=== PATIENT | male | born 1950 | race American Indian/Alaskan Native ===

== ENCOUNTER 2016-05-02 16:36 | Outpatient (CLI) | payer MEDICARE ==
--- NOTE | 2016-05-03 09:31 | XRay Report ---
BILATERAL KNEES, THREE VIEWS HISTORY: Bilateral knee pain. FINDINGS: There is normal bone mineralization. Perhaps minimal tibial spine spurring is identified in both knees. There is no evidence for fracture, bone lesion or large joint effusion. 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 IMPRESSION: Minimal osteoarthritic changes. Bipartite right patella. No acute process.
== END 2016-05-02 16:37 | disposition home or self-care (01) ==
LOC: XRAY 16:36
PROVIDERS: ATTEND Physical Medicine & Rehabilitation
DX: Q74.1 Congenital malformation of knee (principal); M25.561 Pain in right knee

== ENCOUNTER 2017-08-22 09:20 | Outpatient (CLI) | payer MEDICARE ==
--- NOTE | 2017-08-22 12:48 | Fluoroscopy Report ---
BARIUM ENEMA History: Stomach evaluation. Findings: Gastrografin enema was performed through the rectum and the left lower quadrant ostomy. The rectal pouch is intact and unremarkable measuring approximately 15-20 cm in length. Retrograde administration of Gastrografin through the left lower quadrant ostomy demonstrates mild diverticulosis of the distal transverse and descending colon. There is no evidence for mass, stricture or abnormal dilatation. The proximal colon could not be opacified. Impression: The rectal pouch is intact. Mild diverticulosis distal colon.
== END 2017-08-22 09:21 | disposition home or self-care (01) ==
LOC: FLUORO 09:20
PROVIDERS: ATTEND Surgery
DX: K57.30 Diverticulosis of large intestine without perforation or abscess without bleeding (principal)
CPT/HCPCS: 74270; Q9963

== ENCOUNTER 2018-01-11 18:49 | Inpatient (IN) | payer MEDICARE ==
[2018-01-11] MEDS ORDERED: NACL 0.9% 500 ML 500 ML IV ONE (19:02)
[2018-01-11] MEDS ORDERED: SUBLIMAZE IV ONE (19:35)
[2018-01-11] MEDS ORDERED: TYLENOL PO ONE (19:35)
[2018-01-11] MEDS ORDERED: ZOFRAN IV ONE (19:35)
[2018-01-11] MEDS ORDERED: NACL 0.9% 1000 ML IV ONE (19:36)
[2018-01-11 19:37] LABS: Basophils # (Auto) 0.1 K/mm3 (0.0-0.1); Basophils % (Auto) 0.7 % (0.0-1.8); Eosinophils # (Auto) 0.2 K/mm3 (0.0-0.4); Eosinophils % (Auto) 1.1 % (0.0-4.3); Hematocrit 36.4 % (35.5-45.6); Hemoglobin 12.2 gm/dl (11.8-15.2); Lymphocytes % (Auto) 10.9 % (13.4-35.0); Mean Corpuscular HGB Conc 34 % (32-34); Mean Corpuscular Hemoglobin 31 pg (28-32); Mean Corpuscular Volume 92 fl (84-94); Monocytes # (Auto) 1.3 K/mm3 (0.0-0.8); Monocytes % (Auto) 7.3 % (0.0-7.3); Red Blood Count 3.97 M/mm3 (3.65-5.03); Red Cell Distribution Width 13.4 % (13.2-15.2)
--- NOTE | 2018-01-11 19:39 | Emergency Department Report ---
HPI - General Chief Complaint: Fever Time Seen by Provider: 01/11/18 19:15 - HPI HPI: Room 22 The patient is 67-year-old male presented with a chief complaint of fever and abdominal pain. The patient is status post attempted closure of colostomy 12/[address] Guillen. The patient states today he noticed subjective fever as well as "pus" coming out of the abdominal surgical site. Family states the patient hasn't had output from his colostomy approximately 2 days. The patient has had shaking chills and gives his pain is score of 90/10" Location: Abdomen Duration: [See above] Quality: Pain Severity: "90/10" Modifying factors: [see above] Context: [see above] Mode of transportation: [not driving] ED Past Medical Hx - Past Medical History Hx Hypertension: Yes (1 1/2 YEARS) Hx Diabetes: Yes (2 MOS) Hx Arthritis: Yes Hx COPD: Yes (States recently failed PFT's at PCP; awaiting notes/results) Hx HIV: No Additional medical history: diverticulosis, indwelling leiva - Surgical History Additional Surgical History: hernia repair,colostomy 11/2016- 12/30/2017 attempted reversal of colostomy-unsuccessful - Family History Family history: no significant - Social History Smoking Status: Former Smoker (none 1 year) Substance Use Type: None - Medications Home Medications: Home Medications Medication Instructions Recorded Confirmed Last Taken Type Meloxicam 7.5 mg PO QDAY 01/13/15 12/30/17 12/28/17 09:00 History Multivit-Minerals/FA/Lycopene 1 each PO QDAY 01/13/15 12/30/17 12/27/17 09:00 History [Men's Daily Formula Tablet] Tizanidine HCl 4 mg PO TID 01/13/15 12/30/17 12/29/17 09:00 History Docusate Sodium [Colace CAP] 100 mg PO BID PRN #20 capsule 01/01/17 12/30/1702/05 09:00 Rx HYDROcodone/APAP 10-325 10 mg PO QID PRN #20 01/01/17 12/30/17 12/30/17 05:30 Rx Lisinopril/Hydrochlorothiazide 1 tab PO QDAY #30 tablet 01/01/17 12/30/17 05:30 Rx [Zestoretic 20-12.5 mg] Pantoprazole [Protonix TAB] 40 mg PO QDAY #30 tablet 01/01/17 12/30/17 12/30/17 05:30 Rx Albuterol Sulfate [Ventolin Hfa] 2 puff INHALATION PRN PRN 12/29/17 12/30/1702/05 21:00 History Dapagliflozin Propanediol [Farxiga] 10 mg PO DAILY 12/29/17 12/30/17 12/29/17 09 :00 History Insulin Detemir [Levemir Flextouch] 30 units SQ QHS 12/29/17 12/30/17 12/29/17 21:00 History Pregabalin [Lyrica] 75 mg PO DAILY 12/29/17 12/30/17 12/30/17 05:30 History Tamsulosin [Flomax] 0.4 mg PO DAILY 12/29/17 12/30/17 12/29/17 09:00 History Umeclidinium Brm/Vilanterol Tr 1 each IH DAILY 12/29/17 12/30/17 12/29/17 09:00 History [Anoro Ellipta 62.5-25 Mcg INH] ED Review of Systems ROS: Stated complaint: FEVER@103/PASS IN INCISION Other details as noted in HPI Constitutional: fever Eyes: denies: eye pain ENT: denies: throat pain Respiratory: no symptoms reported Cardiovascular: denies: chest pain Endocrine: no symptoms reported Gastrointestinal: abdominal pain Genitourinary: denies: dysuria Musculoskeletal: denies: back pain Neurological: denies: headache Physical Exam - Physical Exam Vital Signs: Vital Signs 01/11/18 18:57 Temperature 102.8 F H Pulse Rate 112 H Respiratory 14 Rate Blood Pressure 105/75 O2 Sat by Pulse 94 Oximetry Physical Exam: GENERAL: The patient is well-developed well-nourished male lying on stretcher not appearing to be in acute distress. [] HEENT: Normocephalic. Atraumatic. Extraocular motions are intact. Patient has moist mucous membranes. NECK: Supple. Trachea midline CHEST/LUNGS: Clear to auscultation. There is no respiratory distress noted. HEART/CARDIOVASCULAR: Regular. There is tachycardia. There is no gallop rub or murmur. ABDOMEN: Abdomen is soft, with diffuse tenderness to palpation. Patient has normal bowel sounds. There is no abdominal distention. SKIN: There is evidence of some yellow discharge from abdominal surgical site. There is some regions of erythema around the suture points. There is no diaphoresis. NEURO: The patient is awake, alert, and oriented. The patient is cooperative. The patient has normal speech MUSCULOSKELETAL: There is no evidence of acute injury. ED Course Vital Signs 01/11/18 18:57 Temperature 102.8 F H Pulse Rate 112 H Respiratory 14 Rate Blood Pressure 105/75 O2 Sat by Pulse 94 Oximetry - Consultations Consultation #1: 01/11/18 20:00 Dr. Guillen [email or web address] 01/11/18 20:[address] Guillen-will recontact when CT abdomen and pelvis has resulted ED Medical Decision Making - Lab Data Result diagrams: 01/11/18 19:12 01/11/18 19:12 Laboratory Tests 01/11/18 01/11/18 01/11/18 19:12 19:12 19:12 WBC 17.9 H RBC 3.97 Hgb 12.2 Hct 36.4 MCV 92 MCH 31 MCHC 34 RDW 13.4 Plt Count 305 Lymph % (Auto) 10.9 L [place] % (Auto) 7.3 Eos % (Auto) 1.1 Baso % (Auto) 0.7 Lymph # 2.0 [place] # 1.3 H Eos # 0.2 Baso # 0.1 Seg Neutrophils % 80.0 H Seg Neutrophils # 14.4 H PT 14.5 INR 1.08 VBG pH Sodium 135 L Potassium 3.6 Chloride 93.9 L Carbon Dioxide 27 Anion Gap 18 BUN 13 Creatinine 0.9 Estimated GFR > 60 BUN/Creatinine Ratio 14 Glucose 154 H Lactic Acid Calcium 9.3 Total Bilirubin 1.00 AST 20 ALT 16 Alkaline Phosphatase 47 Total Protein 7.3 Albumin 3.9 Albumin/Globulin Ratio 1.1 01/11/18 01/11/18 19:12 19:12 WBC RBC Hgb Hct MCV MCH MCHC RDW Plt Count Lymph % (Auto) [place] % (Auto) Eos % (Auto) Baso % (Auto) Lymph # [place] # Eos # Baso # Seg Neutrophils % Seg Neutrophils # PT INR VBG pH 7.516 H Sodium Potassium Chloride Carbon Dioxide Anion Gap BUN Creatinine Estimated GFR BUN/Creatinine Ratio Glucose Lactic Acid 1.70 Calcium Total Bilirubin AST ALT Alkaline Phosphatase Total Protein Albumin Albumin/Globulin Ratio - Radiology Data Radiology results: report reviewed (CT abdomen and pelvis), image reviewed (CT abdomen and pelvis) - Differential Diagnosis postop infection Critical care attestation.: If time is entered above; I have spent that time in minutes in the direct care of this critically ill patient, excluding procedure time. ED Disposition Clinical Impression: Postoperative infection, Acute abdominal pain, Fever, Small bowel obstruction Disposition: OP ADMIT IP TO THIS HOSP Is pt being admited?: Yes Does the pt Need Aspirin: No Condition: Fair Time of Disposition: 23:33 (hospitalist paged (Dr Hoskins))
[2018-01-11 19:50] LABS: INR 1.08 (0.87-1.13)
[2018-01-11 19:51] LABS: Alanine Aminotransferase 16 units/L (7-56); Albumin 3.9 g/dL (3.9-5); BUN/Creatinine Ratio 14; Blood Urea Nitrogen 13 mg/dL (9-20); Calcium 9.3 mg/dL (8.4-10.2); Hemolysis Index 14
[2018-01-11 19:54] LABS: Platelet Count 305 K/mm3 (140-440)
[2018-01-11] MEDS ORDERED: NACL 0.9% 1000 ML 1,000 ML ONE (21:48)
[2018-01-11] MEDS ORDERED: ZOFRAN ONE (21:49)
[2018-01-11] MEDS ORDERED: TYLENOL ONE (21:51)
--- NOTE | 2018-01-11 23:13 | Cat Scan Report ---
FINAL REPORT EXAM: CT ABDOMEN PELVIS W CON HISTORY: postop fever and abdominal pain TECHNIQUE: Following IV administration of 100 cc of Omnipaque 300 axial helical imaging was performed through the abdomen and pelvis with sagittal and coronal reformatted images obtained. Delayed axial helical imaging was also performed through the abdomen and pelvis. Comparison: X-ray abdomen dated December 28, 2016 FINDINGS: There is pulmonary consolidation in both lung bases most suggestive of atelectasis. There is a small left pleural fluid collection. The heart appears to be enlarged. There are small calcifications in the liver hilum that are of unclear etiology. The spleen, pancreas and adrenal glands are unremarkable in appearance. There is an approximately 2.9 centimeter probable cyst in the right kidney. There is an approximately 6 millimeter hypodensity in the left kidney that is too small to characterize. There is no evidence of hydronephrosis. Calcifications in the renal pelvis bilaterally most likely represent vascular calcifications. The gallbladder is moderately to markedly distended but otherwise unremarkable. There are variably distended loops of bowel in the abdomen and pelvis. There is a loop of bowel that is contiguous with the anterior abdominal wall in the midline near a hernia repair site and measures approximately 2.6 centimeters in caliber with an air-fluid level. There is a transition in caliber of the small bowel more distally with the caliber of the small bowel distal to the transition measuring approximately 1.2 centimeter. More superiorly there is another loop of bowel that is mildly distended and measures approximately 2.6 centimeters in caliber with an air-fluid level with a transition in caliber with the more distal bowel measuring approximately 1.1 centimeter in caliber. There is a moderate amount of stool in the ascending and transverse colon. There are colonic diverticula without radiographic evidence of diverticulitis. There is a left anterior pelvic wall colostomy. There is a collection of fluid with marginal enhancement in the right anterior pelvis inferior to the cecum and lateral but contiguous with the terminal ileum. This is suggestive of an abscess and measures approximately 5.1 centimeters (AP) by 5.6 centimeters (lateral) by 4.8 centimeters (craniocaudal). The abdominal aorta is normal caliber. There is atherosclerotic vascular calcification with plaque formation of the aorta and iliac arteries. The urinary bladder is moderately distended and contains a balloon catheter. The prostate gland appears to be normal size. The bony structures are notable for grade 1/grade 2 anterolisthesis L5 on S1 and spondylitic change of the lower thoracic spine of the lumbar spine. There is bilateral L5 spondylolysis. IMPRESSION: 1. Evidence of previous partial colectomy with left anterior ostomy. 2. Fluid collection with marginal enhancement in the right pelvis concerning for abscess. 3. Variably distended loops of bowel with 2 areas of transition in caliber. Possible areas of partial small bowel obstruction. There is a moderate amount of stool in the colon. 4. Colonic diverticula. 5. Small left pleural fluid collection. 6. Spondylitic change lumbar spine with grade 1/grade 2 anterolisthesis and bilateral L5 spondylolysis. 7. Cardiomegaly.
[2018-01-11 23:43] LABS: Bacteria,Urine 1+ /HPF (Negative); Bilirubin,Urine NEG (Negative); Blood,Urine SM (Negative); Color,Urine Yellow (Yellow); Mucus,Urine 3+ /HPF
[2018-01-12] MEDS ORDERED: SUBLIMAZE ONE (00:15)
[2018-01-12] MEDS ORDERED: ZOFRAN IV PRN (02:15)
[2018-01-12] MEDS ORDERED: TYLENOL PO PRN (02:16)
[2018-01-12] MEDS ORDERED: D5/0.45NS 1,000 ML IV SCH (03:00)
[2018-01-12] MEDS: ZOSYN/NS 4.5GM/100ML 4.5 GM/100 ML VIAL IV SCH ×4 (03:36→21:57)
--- NOTE | 2018-01-12 06:28 | History and Physical Report ---
CHIEF COMPLAINT: Abdominal pain and fever. HISTORY OF PRESENTING ILLNESS: The patient is a 67-year-old male who had surgery about 10 days ago involving a reversal of colostomy and started having abdominal pain with some discharge at the surgical site and fever. The patient denied history of nausea and vomiting, but has history of chills with the abdominal pain getting up to as high as level of 9/10 and patient presented for evaluation. PAST MEDICAL HISTORY: Pertinent for hypertension, diabetes mellitus, arthritis, COPD, diverticulosis, indwelling Bowen catheter. PAST SURGICAL HISTORY: Pertinent for hernia repair. The patient had colostomy in November of 2016 with reversal of colostomy recently on 12/30/2017. FAMILY HISTORY: Family history is noncontributory. SOCIAL HISTORY: The patient is a former cigarette smoker, but does not smoke currently, does not drink alcohol and does not use illicit drug. MEDICATIONS: The patient's home medications include meloxicam 7.5 mg by mouth daily, multivitamin and mineral 1 by mouth daily, tizanidine 4 mg by mouth 3 times daily, docusate sodium 100 mg by mouth twice daily, hydrocodone 10 mg by mouth t.i.d., lisinopril/hydrochlorothiazide one tablet by mouth daily, pantoprazole 40 mg by mouth daily, albuterol or Ventolin 2 puffs inhalation as needed, Farxiga 10 mg by mouth daily, Levemir 30 units subQ at bedtime, pregabalin, Lyrica 75 mg by mouth daily, tamsulosin or Flomax 0.4 mg by mouth daily, Anoro Ellipta 62.5/25 mcg inhalation 1 inhalation daily. ALLERGIES: THE PATIENT IS ALLERGIC TO NEUROMUSCULAR BRUCE AND STEROIDS. REVIEW OF SYSTEMS: CONSTITUTIONAL: Fever present. Chills present. No diaphoresis. HEENT: There is no headache or sore throat. CARDIOVASCULAR SYSTEM: There is no chest pain or orthopnea. RESPIRATORY SYSTEM: There is no shortness of breath or cough. GASTROINTESTINAL SYSTEM: Abdominal pain present. No diarrhea, no constipation, no nausea, no vomiting. NEUROLOGICAL SYSTEM: There is no numbness, no dizziness, no altered mental status. MUSCULOSKELETAL SYSTEM: There is no joint pain or joint swelling. DERMATOLOGICAL SYSTEM: Discharge from the surgical site noted. Breakdown of anterior abdominal surgical wound noted, no itching. GENITOURINARY SYSTEM: There is no dysuria, hematuria, or flank pain. Rest of system review is normal. PHYSICAL EXAMINATION: GENERAL: At the time of exam, the patient was found to be alert, oriented x 3, not in acute distress. VITAL SIGNS: At the initial time of presentation showed temperature of 102.8 degrees Fahrenheit, pulse of 112, respiration 14, blood pressure 105/75, O2 sat of 94% on room air. HEENT: Showed pupils to be equal, round, reactive to light and accommodating. Extraocular muscles are intact. NECK: Neck is supple with no JVD or carotid bruits. CARDIOVASCULAR SYSTEM: Showed normal first and second heart sounds with no gallops or murmur. RESPIRATORY SYSTEM: Showed good air entry on both sides of the lungs with no abnormal breath sounds. GASTROINTESTINAL SYSTEM: Showed abdomen to be full, soft, tender with open wound in the subumbilical midline area with some discharge and some stitches still present. NEUROLOGICAL SYSTEM: Neurological system showed no focal deficit. MUSCULOSKELETAL SYSTEM: Showed no joint swelling or tenderness. DERMATOLOGICAL SYSTEM: Showed no skin rash. GENITOURINARY SYSTEM: Showing no costovertebral angle tenderness. PERTINENT LABORATORY AND IMAGING STUDIES: The patient had CBC done with elevated white count of 17,900 with CBC differential showing high segmented neutrophil count of 80% and coagulation studies were unremarkable. The patient's chemistry shows slight decrease in sodium level of 135 and decrease in chloride level of 93.9. The rest of chemistry being unremarkable. The patient's urinalysis show elevated urine WBC of 114 with moderate leukocyte esterase with negative urine nitrite and trace urine ketone with 1+ bacteria. Imaging studies; the patient has CT of the abdomen and pelvis done and this shows evidence of previous partial colectomy with left anterior ostomy. There is also finding of fluid collection with marginal enhancement in the right pelvis concerning for abscess according to the radiology. Also the radiologist reported variable distended loops of bowel with two areas of transition in caliber and also 7 possible areas of partial small bowel obstruction with moderate amount of stool in the colon. There is finding of colonic diverticula, has more left pleural fluid collection. Also the radiologist reported pulmonary consolidation in both lung bases suggestive of atelectasis. DIAGNOSES: 1. Surgical wound infection. 2. Small bowel obstruction. 3. Intraabdominal abscess. 4. Sepsis. PLAN: 1. The patient will be admitted to [facility]. 2. The patient will have surgical consult with Dr. Guillen. 3. The patient was placed on IV D5 half normal at 75 mL an hour. Will be put back on normal saline at 125 mL an hour to treat sepsis. 4. Tylenol 650 mg by mouth every 4 hours for fever and headache and also the patient will be on IV Zofran 4 mg IV every 8 hours for nausea and vomiting and will be on IV Dilaudid 0.5 mg every 3 hours as needed for pain. The patient will continue IV Zosyn 4.5 grams q. 8 hours. Further management of the patient's condition will be determined by the surgeon during consult. JOB# [id number] OCN/NTS
[2018-01-12] MEDS: NACL 0.9% 1000 ML 1,000 ML IV SCH (08:30)
[2018-01-12] MEDS: DILAUDID IV PRN ×5 (08:34→23:30)
[2018-01-12] MEDS ORDERED: COLACE PO PRN (10:38)
--- NOTE | 2018-01-12 10:41 | Event Note ---
Date: 01/12/18
--- NOTE | 2018-01-12 10:47 | Progress Note ---
Assessment and Plan Assessment and plan: --Intra-abdominal /pelvic abscess; Continue current antibiotics, nothing by mouth status, surgery consulted --Sepsis secondary to intra-abdominal abscess/UTI Continue current antibiotics, follow cultures, consider ID evaluation --Small bowel obstruction; nothing by mouth status IV fluids, supportive care, pending surgical evaluation --Leukocytosis; due to sepsis Continue about treatment --2 diabetes mellitus; Accu-Chek sliding scale coverage Patient currently nothing by mouth status, insulin as needed --DVT prophylaxis; SCDs Pending surgical evaluation Closely monitor the patient and adjust the management as needed History Interval history: Patient seen and examined medical records reviewed no new events reported by the nursing staff Admitted with abdominal pain, pelvic abscess, on empiric antibiotics Patient looks ill, vital signs reviewed Hospitalist Physical - Constitutional Vitals: Temp Pulse Resp BP Pulse Ox 98.4 F 91 H 18 147/81 96 01/12/18 09:22 01/12/18 09:22 01/12/18 09:22 01/12/18 09:22 01/12/18 09:22 General appearance: Present: no acute distress, well-nourished - EENT Eyes: Present: PERRL, EOM intact - Neck Neck: Present: supple, normal ROM - Respiratory Respiratory effort: normal Respiratory: bilateral: diminished, negative: rales, rhonchi, wheezing - Cardiovascular Rhythm: regular Heart Sounds: Present: S1 & S2 - Extremities Extremities: no ischemia, No edema - Abdominal General gastrointestinal: soft, distended, absent bowel sounds, other (surgical sutures in place) - Integumentary Integumentary: Present: clear, warm - Psychiatric Psychiatric: appropriate mood/affect, cooperative - Neurologic Neurologic: CNII-XII intact, moves all extremities Results - Labs CBC & Chem 7: 01/11/18 19:12 01/11/18 19:12 Labs: Laboratory Last Values WBC 17.9 K/mm3 (4.5-11.0) H 01/11/18 19:12 RBC 3.97 M/mm3 (3.65-5.03) 01/11/18 19:12 Hgb 12.2 gm/dl (11.8-15.2) 01/11/18 19:12 Hct 36.4 % (35.5-45.6) 01/11/18 19:12 MCV 92 fl (84-94) 01/11/18 19:12 MCH 31 pg (28-32) 01/11/18 19:12 MCHC 34 % (32-34) 01/11/18 19:12 RDW 13.4 % (13.2-15.2) 01/11/18 19:12 Plt Count 305 K/mm3 (140-440) 01/11/18 19:12 Lymph % (Auto) 10.9 % (13.4-35.0) L 01/11/18 19:12 [place] % (Auto) 7.3 % (0.0-7.3) 01/11/18 19:12 Eos % (Auto) 1.1 % (0.0-4.3) 01/11/18 19:12 Baso % (Auto) 0.7 % (0.0-1.8) 01/11/18 19:12 Lymph # 2.0 K/mm3 (1.2-5.4) 01/11/18 19:12 [place] # 1.3 K/mm3 (0.0-0.8) H 01/11/18 19:12 Eos # 0.2 K/mm3 (0.0-0.4) 01/11/18 19:12 Baso # 0.1 K/mm3 (0.0-0.1) 01/11/18 19:12 Seg Neutrophils % 80.0 % (40.0-70.0) H 01/11/18 19:12 Seg Neutrophils # 14.4 K/mm3 (1.8-7.7) H 01/11/18 19:12 PT 14.5 Sec. (12.2-14.9) 01/11/18 19:12 INR 1.08 (0.87-1.13) 01/11/18 19:12 VBG pH 7.516 (7.320-7.420) H 01/11/18 19:12 Sodium 135 mmol/L (137-145) L 01/11/18 19:12 Potassium 3.6 mmol/L (3.6-5.0) 01/11/18 19:12 Chloride 93.9 mmol/L (98-107) L 01/11/18 19:12 Carbon Dioxide 27 mmol/L (22-30) 01/11/18 19:12 Anion Gap 18 mmol/L 01/11/18 19:12 BUN 13 mg/dL (9-20) 01/11/18 19:12 Creatinine 0.9 mg/dL (0.8-1.5) 01/11/18 19:12 Estimated GFR > 60 ml/min 01/11/18 19:12 BUN/Creatinine Ratio 14 % 01/11/18 19:12 Glucose 154 mg/dL (75-100) H 01/11/18 19:12 Lactic Acid 1.30 mmol/L (0.7-2.0) 01/11/18 23:10 Calcium 9.3 mg/dL (8.4-10.2) 01/11/18 19:12 Total Bilirubin 1.00 mg/dL (0.1-1.2) 01/11/18 19:12 AST 20 units/L (5-40) 01/11/18 19:12 ALT 16 units/L (7-56) 01/11/18 19:12 Alkaline Phosphatase 47 units/L (35-129) 01/11/18 19:12 Total Protein 7.3 g/dL (6.3-8.2) 01/11/18 19:12 Albumin 3.9 g/dL (3.9-5) 01/11/18 19:12 Albumin/Globulin Ratio 1.1 % 01/11/18 19:12 Urine Color Yellow (Yellow) 01/11/18 22:41 Urine Turbidity Cloudy (Clear) 01/11/18 22:41 Urine pH 7.0 (5.0-7.0) 01/11/18 22:41 Ur Specific [place] 1.017 (1.003-1.030) 01/11/18 22:41 Urine Protein 100 mg/dl mg/dL (Negative) 01/11/18 22:41 Urine Glucose (UA) Neg mg/dL (Negative) 01/11/18 22:41 Urine Ketones Tr mg/dL (Negative) 01/11/18 22:41 Urine Blood Sm (Negative) 01/11/18 22:41 Urine Nitrite Neg (Negative) 01/11/18 22:41 Urine Bilirubin Neg (Negative) 01/11/18 22:41 Urine Urobilinogen 4.0 mg/dL (<2.0) 01/11/18 22:41 Ur Leukocyte Esterase Mod (Negative) 01/11/18 22:41 Urine WBC (Auto) 114.0 /HPF (0.0-6.0) H 01/11/18 22:41 Urine RBC (Auto) 53.0 /HPF (0.0-6.0) 01/11/18 22:41 Urine Bacteria (Auto) 1+ /HPF (Negative) 01/11/18 22:41 Urine Mucus 3+ /HPF 01/11/18 22:41 Urine Yeast (Budding) 3+ /HPF 01/11/18 22:41
[2018-01-12] MEDS: HumaLOG SUB-Q SCH ×3 (12:06→23:29)
[2018-01-12] MEDS: ZANAFLEX PO SCH ×2 (14:45→21:56)
[2018-01-13] MEDS: DILAUDID IV PRN ×5 (03:58→22:59)
[2018-01-13] MEDS: ZOSYN/NS 4.5GM/100ML 4.5 GM/100 ML VIAL IV SCH ×3 (03:58→20:44)
[2018-01-13] MEDS: NACL 0.9% 1000 ML 1,000 ML IV SCH ×2 (03:58→16:01)
[2018-01-13 04:22] LABS: BUN/Creatinine Ratio 16; Blood Urea Nitrogen 13 mg/dL (9-20); Calcium 8.1 mg/dL (8.4-10.2); Hemolysis Index 34
[2018-01-13 04:24] LABS: Hematocrit 30.6 % (35.5-45.6); Hemoglobin 10.2 gm/dl (11.8-15.2); Mean Corpuscular HGB Conc 33 % (32-34); Mean Corpuscular Hemoglobin 30 pg (28-32); Mean Corpuscular Volume 91 fl (84-94); Platelet Count 306 K/mm3 (140-440); Red Blood Count 3.36 M/mm3 (3.65-5.03); Red Cell Distribution Width 13.5 % (13.2-15.2)
[2018-01-13 04:35] LABS: Basophils % (Auto) 0.6 % (0.0-1.8); Eosinophils % (Auto) 0.5 % (0.0-4.3); Lymphocytes # (Auto) 1.3 K/mm3 (1.2-5.4); Lymphocytes % (Auto) 10.8 % (13.4-35.0); Monocytes % (Auto) 6.5 % (0.0-7.3)
[2018-01-13 04:36] LABS: Basophils # (Auto) 0.1 K/mm3 (0.0-0.1); Eosinophils # (Auto) 0.1 K/mm3 (0.0-0.4); Monocytes # (Auto) 0.8 K/mm3 (0.0-0.8)
--- NOTE | 2018-01-13 05:45 | Consultation ---
HISTORY OF PRESENT ILLNESS: The patient is a well-known case to me who was in this hospital about 2 weeks ago for closure of colostomy, and prior to that, one year before, he had very extensive diverticular disease requiring colon resection and transverse colostomy. I saw him in the office on multiple occasions in the last year and he was doing fine. At this time, he came to close his colostomy. This was about 2 weeks ago. This could not be done because the area was inflamed. We tried to do this with Dr. Jacobo as well and it would not anastomose. Our concern was that the urinary bladder was really stuck to the rectum, so we abandoned the case and we closed the abdomen and we left the colostomy. 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 So, he was admitted for further evaluation. I already called the Interventional Radiology people to drain that area. PHYSICAL EXAMINATION: GENERAL: At this point showed a well preserved man. He looks a little bit sick to me. HEAD AND NECK: Negative. CHEST: Clear. HEART: Sound normal to me. ABDOMEN: Protuberant, moderate tenderness in the right mid lower abdomen. EXTREMITIES: Showed no evidence of edema. IMPRESSION AND PLAN: A collection in the right mid lower abdomen, status post attempt at closure of colostomy, status post severe diverticular disease in the past. At this point, we need to just continue the same with antibiotics and then we will go from there. I had a lengthy talk with the patient and his as to the need for the above and we will have a followup on him. JOB# [id number] GLENDY/DANTE
[2018-01-13] MEDS: HumaLOG SUB-Q SCH ×4 (07:45→21:56)
[2018-01-13] MEDS: ZANAFLEX PO SCH ×3 (08:00→20:45)
[2018-01-13] MEDS ORDERED: DIFLUCAN 200 MG/100 ML BAG IV ONE (09:39)
--- NOTE | 2018-01-13 09:41 | Progress Note ---
Assessment and Plan Assessment and plan: --Intra-abdominal /pelvic abscess; An evaluation and per surgery/IR Continue current antibiotics, nothing by mouth status, possible CT-guided drainage today --Sepsis secondary to intra-abdominal abscess/UTI Continue current antibiotics, follow cultures, consider ID evaluation --Small bowel obstruction; nothing by mouth status IV fluids, supportive care, pending surgical evaluation --Leukocytosis; due to sepsis, trending down --2 diabetes mellitus; Accu-Chek sliding scale coverage Patient currently nothing by mouth status, insulin as needed --DVT prophylaxis; SCDs Pending surgical evaluation Surgery consultation and recommendations noted and appreciated Closely monitor the patient and adjust the management as needed History Interval history: Patient seen and examined medical records reviewed Patient complains of some abdominal pain Alert awake oriented Vital signs noted Scheduled for CT-guided drainage of pelvic abscess today Hospitalist Physical - Constitutional Vitals: Temp Pulse Resp BP Pulse Ox 98.8 F 82 16 128/73 93 01/13/18 07:32 01/13/18 07:32 01/13/18 08:22 01/13/18 07:32 01/13/18 07:32 General appearance: Present: no acute distress, well-nourished - EENT Eyes: Present: PERRL, EOM intact - Neck Neck: Present: supple, normal ROM - Respiratory Respiratory effort: normal Respiratory: bilateral: diminished, negative: rales, rhonchi, wheezing - Cardiovascular Rhythm: regular Heart Sounds: Present: S1 & S2 - Extremities Extremities: no ischemia, No edema - Abdominal General gastrointestinal: soft, tender, distended, hypoactive bowel sounds - Integumentary Integumentary: Present: clear, warm - Psychiatric Psychiatric: appropriate mood/affect, cooperative - Neurologic Neurologic: moves all extremities Results - Labs CBC & Chem 7: 01/14/18 05:39 01/14/18 05:39 Labs: Laboratory Last Values WBC 11.8 K/mm3 (4.5-11.0) H 01/13/18 03:38 RBC 3.36 M/mm3 (3.65-5.03) L 01/13/18 03:38 Hgb 10.2 gm/dl (11.8-15.2) L 01/13/18 03:38 Hct 30.6 % (35.5-45.6) L 01/13/18 03:38 MCV 91 fl (84-94) 01/13/18 03:38 MCH 30 pg (28-32) 01/13/18 03:38 MCHC 33 % (32-34) 01/13/18 03:38 RDW 13.5 % (13.2-15.2) 01/13/18 03:38 Plt Count 306 K/mm3 (140-440) 01/13/18 03:38 Lymph % (Auto) 10.8 % (13.4-35.0) L 01/13/18 03:38 [place] % (Auto) 6.5 % (0.0-7.3) 01/13/18 03:38 Eos % (Auto) 0.5 % (0.0-4.3) 01/13/18 03:38 Baso % (Auto) 0.6 % (0.0-1.8) 01/13/18 03:38 Lymph # 1.3 K/mm3 (1.2-5.4) 01/13/18 03:38 [place] # 0.8 K/mm3 (0.0-0.8) 01/13/18 03:38 Eos # 0.1 K/mm3 (0.0-0.4) 01/13/18 03:38 Baso # 0.1 K/mm3 (0.0-0.1) 01/13/18 03:38 Seg Neutrophils % 81.6 % (40.0-70.0) H 01/13/18 03:38 Seg Neutrophils # 9.7 K/mm3 (1.8-7.7) H 01/13/18 03:38 PT 14.5 Sec. (12.2-14.9) 01/11/18 19:12 INR 1.08 (0.87-1.13) 01/11/18 19:12 VBG pH 7.516 (7.320-7.420) H 01/11/18 19:12 Sodium 132 mmol/L (137-145) L 01/13/18 03:38 Potassium 3.9 mmol/L (3.6-5.0) 01/13/18 03:38 Chloride 96.3 mmol/L (98-107) L 01/13/18 03:38 Carbon Dioxide 23 mmol/L (22-30) 01/13/18 03:38 Anion Gap 17 mmol/L 01/13/18 03:38 BUN 13 mg/dL (9-20) 01/13/18 03:38 Creatinine 0.8 mg/dL (0.8-1.5) 01/13/18 03:38 Estimated GFR > 60 ml/min 01/13/18 03:38 BUN/Creatinine Ratio 16 % 01/13/18 03:38 Glucose 104 mg/dL (75-100) H 01/13/18 03:38 POC Glucose 118 (70-105) H 01/13/18 07:34 Lactic Acid 1.30 mmol/L (0.7-2.0) 01/11/18 23:10 Calcium 8.1 mg/dL (8.4-10.2) L 01/13/18 03:38 Total Bilirubin 1.00 mg/dL (0.1-1.2) 01/11/18 19:12 AST 20 units/L (5-40) 01/11/18 19:12 ALT 16 units/L (7-56) 01/11/18 19:12 Alkaline Phosphatase 47 units/L (35-129) 01/11/18 19:12 Total Protein 7.3 g/dL (6.3-8.2) 01/11/18 19:12 Albumin 3.9 g/dL (3.9-5) 01/11/18 19:12 Albumin/Globulin Ratio 1.1 % 01/11/18 19:12 Urine Color Yellow (Yellow) 01/11/18 22:41 Urine Turbidity Cloudy (Clear) 01/11/18 22:41 Urine pH 7.0 (5.0-7.0) 01/11/18 22:41 Ur Specific [place] 1.017 (1.003-1.030) 01/11/18 22:41 Urine Protein 100 mg/dl mg/dL (Negative) 01/11/18 22:41 Urine Glucose (UA) Neg mg/dL (Negative) 01/11/18 22:41 Urine Ketones Tr mg/dL (Negative) 01/11/18 22:41 Urine Blood Sm (Negative) 01/11/18 22:41 Urine Nitrite Neg (Negative) 01/11/18 22:41 Urine Bilirubin Neg (Negative) 01/11/18 22:41 Urine Urobilinogen 4.0 mg/dL (<2.0) 01/11/18 22:41 Ur Leukocyte Esterase Mod (Negative) 01/11/18 22:41 Urine WBC (Auto) 114.0 /HPF (0.0-6.0) H 01/11/18 22:41 Urine RBC (Auto) 53.0 /HPF (0.0-6.0) 01/11/18 22:41 Urine Bacteria (Auto) 1+ /HPF (Negative) 01/11/18 22:41 Urine Mucus 3+ /HPF 01/11/18 22:41 Urine Yeast (Budding) 3+ /HPF 01/11/18 22:41
[2018-01-13] MEDS ORDERED: NON-FORMULARY (Lisinopril/Hydrochlorothiazide [Zestoretic 20-12.5 Mg] 1 TAB) PO SCH (10:00)
[2018-01-13] MEDS: ZESTRIL PO SCH (10:45)
[2018-01-13] MEDS: PROTONIX PO SCH (10:45)
[2018-01-13] MEDS: LYRICA PO SCH (10:45)
[2018-01-13] MEDS: HCTZ PO SCH (10:45)
[2018-01-13] MEDS: FLOMAX PO SCH (10:45)
[2018-01-13] MEDS ORDERED: DIFLUCAN PO ONE (11:00)
[2018-01-13] MEDS ORDERED: VERSED IV ONE ×2 (13:14→13:17)
[2018-01-13] MEDS ORDERED: SUBLIMAZE ONE (13:15)
[2018-01-13] MEDS ORDERED: SUBLIMAZE IV ONE (13:17)
[2018-01-13] MEDS ORDERED: XYLOCAINE 1%/ EPI 1:100,000 INFILTRATI ONE (13:26)
--- NOTE | 2018-01-13 15:12 | Progress Note ---
Subjective Patient Reports: Positive: still having pain Narrative: for drainage today seen in radiology wbc OK will check result Objective Vital Signs - 12hr 01/13/18 01/13/18 01/13/18 03:58 04:10 04:28 Temperature Pulse Rate 91 H Pulse Rate [ Intra-Procedure ] Pulse Rate [ Post-Procedure] Pulse Rate [Pre -Procedure] Respiratory 20 20 Rate Respiratory Rate [Intra- Procedure] Respiratory Rate [Post- Procedure] Respiratory Rate [Pre- Procedure] Blood Pressure Blood Pressure [Intra- Procedure] Blood Pressure [Post-Procedure ] Blood Pressure [Pre-Procedure] O2 Sat by Pulse 96 Oximetry O2 Sat by Pulse Oximetry [ Intra-Procedure ] O2 Sat by Pulse Oximetry [Post -Procedure] O2 Sat by Pulse Oximetry [Pre- Procedure] 01/13/18 01/13/18 01/13/18 07:32 08:22 12:01 Temperature 98.8 F Pulse Rate 82 Pulse Rate [ Intra-Procedure ] Pulse Rate [ Post-Procedure] Pulse Rate [Pre -Procedure] Respiratory 18 16 16 Rate Respiratory Rate [Intra- Procedure] Respiratory Rate [Post- Procedure] Respiratory Rate [Pre- Procedure] Blood Pressure 128/73 Blood Pressure [Intra- Procedure] Blood Pressure [Post-Procedure ] Blood Pressure [Pre-Procedure] O2 Sat by Pulse 93 Oximetry O2 Sat by Pulse Oximetry [ Intra-Procedure ] O2 Sat by Pulse Oximetry [Post -Procedure] O2 Sat by Pulse Oximetry [Pre- Procedure] 01/13/18 01/13/18 01/13/18 13:25 13:30 13:35 Temperature Pulse Rate Pulse Rate [ 97 H 103 H Intra-Procedure ] Pulse Rate [ Post-Procedure] Pulse Rate [Pre 98 H -Procedure] Respiratory Rate Respiratory 22 18 Rate [Intra- Procedure] Respiratory Rate [Post- Procedure] Respiratory 18 Rate [Pre- Procedure] Blood Pressure Blood Pressure 138/66 141/69 [Intra- Procedure] Blood Pressure [Post-Procedure ] Blood Pressure 140/70 [Pre-Procedure] O2 Sat by Pulse Oximetry O2 Sat by Pulse 95 95 Oximetry [ Intra-Procedure ] O2 Sat by Pulse Oximetry [Post -Procedure] O2 Sat by Pulse 94 Oximetry [Pre- Procedure] 01/13/18 01/13/18 01/13/18 13:40 13:42 14:00 Temperature Pulse Rate Pulse Rate [ 99 H Intra-Procedure ] Pulse Rate [ 98 H 94 H Post-Procedure] Pulse Rate [Pre -Procedure] Respiratory Rate Respiratory 19 Rate [Intra- Procedure] Respiratory 20 17 Rate [Post- Procedure] Respiratory Rate [Pre- Procedure] Blood Pressure Blood Pressure 136/61 [Intra- Procedure] Blood Pressure 132/70 122/60 [Post-Procedure ] Blood Pressure [Pre-Procedure] O2 Sat by Pulse Oximetry O2 Sat by Pulse 95 Oximetry [ Intra-Procedure ] O2 Sat by Pulse 94 94 Oximetry [Post -Procedure] O2 Sat by Pulse Oximetry [Pre- Procedure] 01/13/18 01/13/18 14:11 14:37 Temperature 99.9 F H Pulse Rate 93 H Pulse Rate [ Intra-Procedure ] Pulse Rate [ 103 H Post-Procedure] Pulse Rate [Pre -Procedure] Respiratory 20 Rate Respiratory Rate [Intra- Procedure] Respiratory 18 Rate [Post- Procedure] Respiratory Rate [Pre- Procedure] Blood Pressure 142/71 Blood Pressure [Intra- Procedure] Blood Pressure 139/74 [Post-Procedure ] Blood Pressure [Pre-Procedure] O2 Sat by Pulse 90 Oximetry O2 Sat by Pulse Oximetry [ Intra-Procedure ] O2 Sat by Pulse 95 Oximetry [Post -Procedure] O2 Sat by Pulse Oximetry [Pre- Procedure] - Labs 01/13/18 03:38 01/13/18 03:38 Diabetes panel 01/13/18 Range/Units 03:38 Sodium 132 L (137-145) mmol/L Potassium 3.9 (3.6-5.0) mmol/L Chloride 96.3 L (98-107) mmol/L Carbon Dioxide 23 (22-30) mmol/L BUN 13 (9-20) mg/dL Creatinine 0.8 (0.8-1.5) mg/dL Glucose 104 H (75-100) mg/dL Calcium 8.1 L (8.4-10.2) mg/dL Calcium panel 01/13/18 Range/Units 03:38 Calcium 8.1 L (8.4-10.2) mg/dL Pituitary panel 01/13/18 Range/Units 03:38 Sodium 132 L (137-145) mmol/L Potassium 3.9 (3.6-5.0) mmol/L Chloride 96.3 L (98-107) mmol/L Carbon Dioxide 23 (22-30) mmol/L BUN 13 (9-20) mg/dL Creatinine 0.8 (0.8-1.5) mg/dL Glucose 104 H (75-100) mg/dL Calcium 8.1 L (8.4-10.2) mg/dL Adrenal panel 01/13/18 Range/Units 03:38 Sodium 132 L (137-145) mmol/L Potassium 3.9 (3.6-5.0) mmol/L Chloride 96.3 L (98-107) mmol/L Carbon Dioxide 23 (22-30) mmol/L BUN 13 (9-20) mg/dL Creatinine 0.8 (0.8-1.5) mg/dL Glucose 104 H (75-100) mg/dL Calcium 8.1 L (8.4-10.2) mg/dL
--- NOTE | 2018-01-13 17:49 | Cat Scan Report ---
Exam: CT-guided placement of drainage catheter Clinical indication: Patient with history of postoperative fluid collection Date: 01/13/2018 Procedure: Following explanation of the risks, benefits and alternatives; written informed consent was obtained. Patient was brought to the CT suite and placed in supine position on the gantry. Initial director of assisted living images of lower abdomen were performed an appropriate access site was chosen overlying the patient's fluid collection in his right lower quadrant. The patient's skin was prepped and draped in the usual sterile fashion. 1% lidocaine was used for anesthesia. Using intermittent CT guidance, a 10 cm 78 trocar needle was advanced into the central aspect of the fluid collection. There was prompt return of purulent hematogenous fluid consistent with an infected hematoma. A sample was sent for laboratory analysis. A 0.035 guidewire was advanced through the needle and coiled within the fluid collection. The needle was removed and following serial dilation over the guidewire, an 8 [place] drainage catheter was placed over the guidewire. The catheter was then placed to FRANCISCO bulb drainage. The catheter was easily passed through the skin surface using 2-0 Ethilon suture and a Stayfix device. A sterile dressing was applied. The patient tolerated the procedure well. There were no immediate post procedure complications. Conscious sedation was performed under the guidance of radiologic nursing. Continuous cardiopulmonary monitoring was utilized. Impression: CT-guided placement of 8 [place] drainage catheter into an infected hematoma in the patient's right lower quadrant. Samples were sent for laboratory analysis.
--- NOTE | 2018-01-13 19:45 | Consultation ---
History of Present Illness - Reason for Consult Consult date: 01/13/18 pelvic collection Requesting physician: EDINSON SUAZO - History of Present Illness 67 y/o male with history of DM, COPD, ex smoker and extensive diverticular disease with enterovesical fistula s/p sigmoid resection, colostomy and Hatmann' s pouch on 12/18/16 complicated with wound dehiscence s/p wound exploaration on and cystoscopy with bilateral ureteral stents; recently admitted on for colostomy reversal taken to the OR on 12/30/17 for ex lap, attempt to close colostomy, closure parastomal hernia, repair rent urinary bladder and ALCIDES ; readmitted on 01/11/18 due to a week history of surgical wound erythema and foul smelling drainage associated with fever. at 103 at home. Per caregiver, he has been c/o wound site pain and purulent drainage. In the ED, tmep 102.8, HR 112, R 14, BP 105/75, O2 sat 94. WBC 17.9. Hg 12.2. Plat 305. Creat 0.9. Lactate 1.7. UA moderate LE, 114 wbcs Micro: Blood cx 01/11 ngtd Urine cx: 01/11 Vi albicans Past History Past Medical History: other (as per HPI rest ) Past Surgical History: Other (see HPI) Social history: lives with family, smoking Family history: no significant family history Medications and Allergies Allergies Allergy/AdvReac Type Severity Reaction Status Date / Time Neuromuscular Blockers, Allergy throat Verified 12/15/16 00:17 Steroidal swells .sob [Steroidal Neuromuscular Blockers] Home Medications Medication Instructions Recorded Confirmed Last Taken Type Meloxicam 7.5 mg PO QDAY 01/13/15 12/30/17 12/28/17 09:00 History Multivit-Minerals/FA/Lycopene 1 each PO QDAY 01/13/15 12/30/17 12/27/17 09:00 History [Men's Daily Formula Tablet] Tizanidine HCl 4 mg PO TID 01/13/15 12/30/17 12/29/17 09:00 History Docusate Sodium [Colace CAP] 100 mg PO BID PRN #20 capsule 01/01/17 12/30/1702/05 09:00 Rx HYDROcodone/APAP 10-325 10 mg PO QID PRN #20 01/01/17 12/30/17 12/30/17 05:30 Rx Lisinopril/Hydrochlorothiazide 1 tab PO QDAY #30 tablet 01/01/17 12/30/17 05:30 Rx [Zestoretic 20-12.5 mg] Pantoprazole [Protonix TAB] 40 mg PO QDAY #30 tablet 01/01/17 12/30/17 12/30/17 05:30 Rx Albuterol Sulfate [Ventolin Hfa] 2 puff INHALATION PRN PRN 12/29/17 12/30/1702/05 21:00 History Dapagliflozin Propanediol [Farxiga] 10 mg PO DAILY 12/29/17 12/30/17 12/29/17 09 :00 History Insulin Detemir [Levemir Flextouch] 30 units SQ QHS 12/29/17 12/30/17 12/29/17 21:00 History Pregabalin [Lyrica] 75 mg PO DAILY 12/29/17 12/30/17 12/30/17 05:30 History Tamsulosin [Flomax] 0.4 mg PO DAILY 12/29/17 12/30/17 12/29/17 09:00 History Umeclidinium Brm/Vilanterol Tr 1 each IH DAILY 12/29/17 12/30/17 12/29/17 09:00 History [Anoro Ellipta 62.5-25 Mcg INH] Active Meds: Active Medications Acetaminophen (Tylenol) 650 mg PO Q4H PRN PRN Reason: Fever >101 Docusate Sodium (Colace) 100 mg PO BID PRN PRN Reason: Constipation Fluconazole (Diflucan) 100 mg PO QDAY ERASMO Hydrochlorothiazide (Hctz) 12.5 mg PO QDAY [facility] Last Admin: 01/13/18 10:45 Dose: Not Given Hydromorphone HCl (Dilaudid) 0.5 mg IV Q3H PRN PRN Reason: Pain, Moderate (4-6) Last Admin: 01/13/18 18:04 Dose: 0.5 mg Piperacillin Sod/Tazobactam Sod (Zosyn/Ns 4.5gm/100ml) 4.5 gm in 100 mls @ 200 mls/hr IV Q8H [facility]; Protocol Last Admin: 01/13/18 12:22 Dose: 200 mls/hr Sodium Chloride (Nacl 0.9% 1000 Ml) 1,000 mls @ 125 mls/hr IV DIRECT [facility] Last Admin: 01/13/18 16:01 Dose: 125 mls/hr Insulin Human Lispro (Humalog) 0 unit SUB-Q ACHS [facility]; Protocol Last Admin: 01/13/18 16:30 Dose: Not Given Lisinopril (Zestril) 20 mg PO QDAY [facility] Last Admin: 01/13/18 10:45 Dose: Not Given Ondansetron HCl (Zofran) 4 mg IV Q8H PRN PRN Reason: Nausea And Vomiting Pantoprazole Sodium (Protonix) 40 mg PO QDAY [facility] Last Admin: 01/13/18 10:45 Dose: Not Given Pregabalin (Lyrica) 75 mg PO DAILY [facility] Last Admin: 01/13/18 10:45 Dose: Not Given Tamsulosin HCl (Flomax) 0.4 mg PO DAILY [facility] Last Admin: 01/13/18 10:45 Dose: Not Given Tizanidine HCl (Zanaflex) 4 mg PO TID [facility] Last Admin: 01/13/18 14:00 Dose: Not Given Review of Systems All systems: negative (as per HPI rest 10 ROS neg) Physical Examination - Physical Exam Narrative exam: Alert in NAD anxious NC AT KARLA OP clear Neck no LNs no JVD Lungs CTA chrystal CV tachy Abd +midline with with sutures inferior portion with erythema, ostomy Ext no edema Neuro alert oriented following commands Skin no rash - Constitutional Vitals: Vital Signs Temp Pulse Resp BP Pulse Ox 99.9 F H 93 H 18 142/71 90 01/13/18 14:37 01/13/18 14:37 01/13/18 18:04 01/13/18 14:37 01/13/18 14:37 Temperature -Last 24 Hours Temperature 99.9 F Temperature 98.8 F Temperature 100.0 F Results - Labs CBC & Chem 7: 01/13/18 03:38 01/13/18 03:38 Labs: Abnormal lab results 01/13/18 01/13/18 01/13/18 Range/Units 03:38 03:38 07:34 WBC 11.8 H (4.5-11.0) K/mm3 RBC 3.36 L (3.65-5.03) M/mm3 Hgb 10.2 L (11.8-15.2) gm/dl Hct 30.6 L (35.5-45.6) % Lymph % (Auto) 10.8 L (13.4-35.0) % Seg Neutrophils % 81.6 H (40.0-70.0) % Seg Neutrophils # 9.7 H (1.8-7.7) K/mm3 Sodium 132 L (137-145) mmol/L Chloride 96.3 L (98-107) mmol/L Glucose 104 H (75-100) mg/dL POC Glucose 118 H (70-105) Calcium 8.1 L (8.4-10.2) mg/dL Assessment and Plan Assessment: 1) Sepsis: Present on admission, manifested by fever, tachycardia, hypotension, leukocytosis. Etiology most likely pelvic abscess +/- surgical site infection + /- UTI. 2) Right large pelvic abscess: from surgical site infection +/- extensive diverticular disease +/- ? fistula -Extensive diverticular disease with history of enterovesical fistula s/p sigmoid resection, colostomy and Hatmann's pouch on 12/18/16 complicated with wound dehiscence s/p wound exploaration on 12/19/16 and cystoscopy with bilateral ureteral stents -S/P 12/30/17 OR ex lap, attempt to close colostomy, closure parastomal hernia, repair rent urinary bladder and ALCIDES 3) DM 4) COPD 5) History of tobacco abuse Plan: -follow-up blood cultures -surgery to eval for persistent enterovesical fistula -agree with CT guided drainage, send deep collection cultures -continue zosyn and fluconazole (increase to 200 mg qday) for now -CRP -will require IV abx for several weeks Thank you for your consultation, will follow up with you. Annel Meier MD Infectious Diseases Specialist [facility] ([facility] M [phone] O [phone]
[2018-01-14] MEDS: NACL 0.9% 1000 ML 1,000 ML IV SCH ×2 (00:15→08:32)
[2018-01-14] MEDS: ZOSYN/NS 4.5GM/100ML 4.5 GM/100 ML VIAL IV SCH ×3 (04:21→20:55)
[2018-01-14] MEDS: DILAUDID IV PRN ×4 (04:37→20:56)
[2018-01-14 06:19] LABS: Basophils % (Auto) 0.4 % (0.0-1.8); Eosinophils # (Auto) 0.2 K/mm3 (0.0-0.4); Eosinophils % (Auto) 2.2 % (0.0-4.3); Hematocrit 32.8 % (35.5-45.6); Hemoglobin 10.9 gm/dl (11.8-15.2); Lymphocytes # (Auto) 1.1 K/mm3 (1.2-5.4); Lymphocytes % (Auto) 12.6 % (13.4-35.0); Mean Corpuscular HGB Conc 33 % (32-34); Mean Corpuscular Hemoglobin 31 pg (28-32); Mean Corpuscular Volume 93 fl (84-94); Monocytes # (Auto) 0.6 K/mm3 (0.0-0.8); Monocytes % (Auto) 6.7 % (0.0-7.3); Platelet Count 245 K/mm3 (140-440); Red Blood Count 3.52 M/mm3 (3.65-5.03); Red Cell Distribution Width 13.6 % (13.2-15.2)
[2018-01-14 06:42] LABS: BUN/Creatinine Ratio 21; Blood Urea Nitrogen 15 mg/dL (9-20); Calcium 8.3 mg/dL (8.4-10.2); Hemolysis Index 14
--- NOTE | 2018-01-14 07:35 | Progress Note ---
Addendum entered and electronically signed by KYLIE ANN NP 01/14/18 14: 43: ID is signing off today. Original Note: Assessment and Plan Assessment: 1) Sepsis: Improved. Etiology most likely pelvic abscess +/- surgical site infection + UTI. -Urine Culture - Ernesto -CRP- 17.7 2) Right large pelvic abscess: from surgical site infection +/- extensive diverticular disease +/- ? fistula -Extensive diverticular disease with history of enterovesical fistula s/p sigmoid resection, colostomy and Hatmann's pouch on 12/18/16 complicated with wound dehiscence s/p wound exploaration on 12/19/16 and cystoscopy with bilateral ureteral stents -S/P 12/30/17 OR ex lap, attempt to close colostomy, closure parastomal hernia, repair rent urinary bladder and ALCIDES -CT 01/11 - Fluid collection with marginal enhancement in the right pelvis concerning for abscess. Variably distended loops of bowel with 2 areas of transition in caliber. Possible areas of partial small bowel obstruction. Colonic diverticula. -s/p CT guided drainage on 01/14 Gram stain +GNRs 3) DM 4) COPD 5) History of tobacco abuse Plan: -f/u CT guided cultures -surgery to eval for persistent enterovesical fistula -continue zosyn, D4 -continue Fluconazole, D1 -will need zosyn 4.5 g IV q 8h for 3 weeks until 02/04. Tentative OPTA sent to registered nurse hh case manager -needs PICC Kylie Ann NP [facility] M: [id number] O:[phone] Subjective Date of service: 01/14/18 Interval history: Patient sitting up in the bed. at bedside. Patient stated that he was feeling better today. Microbiology: Blood cultures: 01/09- ngtd Urine cultures: 01/11- ernesto Current Antimocrobial: Zosyn, D4 Flucanozole, D1 Previous Antimicrobials: Objective - Exam Narrative Exam: Alert in NAD anxious NC AT KARLA OP clear Neck no LNs no JVD Lungs CTA chrystal CV NSR Abd +midline with with sutures inferior portion with erythema, ostomy Ext no edema Neuro alert oriented following commands Skin no rash - Constitutional Vitals: Vital Signs Temp Pulse Resp BP Pulse Ox 97.2 F L 71 20 115/70 94 01/14/18 02:24 01/14/18 02:24 01/14/18 05:07 01/14/18 02:24 01/14/18 02:24 Temperature -Last 24 Hours Temperature 97.2 F Temperature 101.3 F Temperature 99.9 F - Labs CBC & Chem 7: 01/14/18 05:39 01/14/18 05:39 Labs: Abnormal lab results 01/13/18 01/13/18 01/14/18 Range/Units 07:34 21:27 05:39 RBC 3.52 L (3.65-5.03) M/mm3 Hgb 10.9 L (11.8-15.2) gm/dl Hct 32.8 L (35.5-45.6) % Lymph % (Auto) 12.6 L (13.4-35.0) % Lymph # 1.1 L (1.2-5.4) K/mm3 Seg Neutrophils % 78.1 H (40.0-70.0) % Creatinine (0.8-1.5) mg/dL Glucose (75-100) mg/dL POC Glucose 118 H (70-105) Calcium (8.4-10.2) mg/dL C-Reactive Protein 17.70 H (0.00-1.30) mg/dL 01/14/18 Range/Units 05:39 RBC (3.65-5.03) M/mm3 Hgb (11.8-15.2) gm/dl Hct (35.5-45.6) % Lymph % (Auto) (13.4-35.0) % Lymph # (1.2-5.4) K/mm3 Seg Neutrophils % (40.0-70.0) % Creatinine 0.7 L (0.8-1.5) mg/dL Glucose 115 H (75-100) mg/dL POC Glucose (70-105) Calcium 8.3 L (8.4-10.2) mg/dL C-Reactive Protein (0.00-1.30) mg/dL
[2018-01-14] MEDS: HumaLOG SUB-Q SCH ×4 (07:50→22:26)
[2018-01-14] MEDS: ZANAFLEX PO SCH ×3 (09:05→21:01)
[2018-01-14] MEDS: FLOMAX PO SCH (09:05)
[2018-01-14] MEDS: LYRICA PO SCH (09:06)
[2018-01-14] MEDS: PROTONIX PO SCH (09:06)
[2018-01-14] MEDS: HCTZ PO SCH (09:06)
[2018-01-14] MEDS: ZESTRIL PO SCH (09:10)
[2018-01-14] MEDS: DIFLUCAN 200 MG/100 ML BAG IV SCH (09:40)
[2018-01-14] MEDS ORDERED: DIFLUCAN PO SCH (10:00)
[2018-01-14] MEDS ORDERED: DIFLUCAN/NS 100 MG/50 ML 100 MG/50 ML BAG IV SCH (10:00)
--- NOTE | 2018-01-14 12:28 | Progress Note ---
Assessment and Plan Assessment and plan: --Intra-abdominal /pelvic abscess; Status post CT-guided drainage CT-guided placement of a drainage catheter into an infected hematoma in patient' s right lower quadrant, on 01/13/18 purulent fluid drainage, sent for analysis --Sepsis secondary to intra-abdominal abscess Continue Zosyn every 8 hours total 3 weeks, stop date 02/04/2018 recommended by ID --UTI/funguria; continue Diflucan --Small bowel obstruction; improved Clear liquids advance as tolerated per surgery --Leukocytosis; due to sepsis, trending down --2 diabetes mellitus; Accu-Chek sliding scale coverage Insulin as needed --DVT prophylaxis; SCDs, no pharmacological anticoagulations as patient is postop risk for bleeding Surgery consultation and recommendations noted and appreciated Ambulate as tolerated/physical therapy as needed Closely monitor the patient and adjust the management as needed History Interval history: Patient seen and examined medical records reviewed No new events reported by the nursing staff Patient is upset because he's not getting food Feels slightly better, Surgery advised clear liquid diet Vital signs reviewed Hospitalist Physical - Constitutional Vitals: Temp Pulse Resp BP Pulse Ox 98.6 F 65 6 L 132/68 97 01/14/18 07:37 01/14/18 09:10 01/14/18 08:32 01/14/18 09:10 01/14/18 07:37 General appearance: Present: no acute distress, well-nourished - EENT Eyes: Present: PERRL, EOM intact - Neck Neck: Present: supple, normal ROM - Respiratory Respiratory effort: normal Respiratory: bilateral: diminished, negative: rales, rhonchi - Cardiovascular Rhythm: regular Heart Sounds: Present: S1 & S2 - Extremities Extremities: no ischemia, No edema - Abdominal General gastrointestinal: soft, non-tender, non-distended, normal bowel sounds - Integumentary Integumentary: Present: clear, warm - Psychiatric Psychiatric: appropriate mood/affect, cooperative - Neurologic Neurologic: CNII-XII intact, moves all extremities Results - Labs CBC & Chem 7: 01/14/18 05:39 01/14/18 05:39 Labs: Laboratory Last Values WBC 8.8 K/mm3 (4.5-11.0) 01/14/18 05:39 RBC 3.52 M/mm3 (3.65-5.03) L 01/14/18 05:39 Hgb 10.9 gm/dl (11.8-15.2) L 01/14/18 05:39 Hct 32.8 % (35.5-45.6) L 01/14/18 05:39 MCV 93 fl (84-94) 01/14/18 05:39 MCH 31 pg (28-32) 01/14/18 05:39 MCHC 33 % (32-34) 01/14/18 05:39 RDW 13.6 % (13.2-15.2) 01/14/18 05:39 Plt Count 245 K/mm3 (140-440) 01/14/18 05:39 Lymph % (Auto) 12.6 % (13.4-35.0) L 01/14/18 05:39 Wilson % (Auto) 6.7 % (0.0-7.3) 01/14/18 05:39 Eos % (Auto) 2.2 % (0.0-4.3) 01/14/18 05:39 Baso % (Auto) 0.4 % (0.0-1.8) 01/14/18 05:39 Lymph # 1.1 K/mm3 (1.2-5.4) L 01/14/18 05:39 Wilson # 0.6 K/mm3 (0.0-0.8) 01/14/18 05:39 Eos # 0.2 K/mm3 (0.0-0.4) 01/14/18 05:39 Baso # 0.0 K/mm3 (0.0-0.1) 01/14/18 05:39 Seg Neutrophils % 78.1 % (40.0-70.0) H 01/14/18 05:39 Seg Neutrophils # 6.9 K/mm3 (1.8-7.7) 01/14/18 05:39 PT 14.5 Sec. (12.2-14.9) 01/11/18 19:12 INR 1.08 (0.87-1.13) 01/11/18 19:12 VBG pH 7.516 (7.320-7.420) H 01/11/18 19:12 Sodium 141 mmol/L (137-145) D 01/14/18 05:39 Potassium 4.2 mmol/L (3.6-5.0) 01/14/18 05:39 Chloride 103.9 mmol/L (98-107) 01/14/18 05:39 Carbon Dioxide 23 mmol/L (22-30) 01/14/18 05:39 Anion Gap 18 mmol/L 01/14/18 05:39 BUN 15 mg/dL (9-20) 01/14/18 05:39 Creatinine 0.7 mg/dL (0.8-1.5) L 01/14/18 05:39 Estimated GFR > 60 ml/min 01/14/18 05:39 BUN/Creatinine Ratio 21 % 01/14/18 05:39 Glucose 115 mg/dL (75-100) H 01/14/18 05:39 POC Glucose 161 (70-105) H 01/14/18 11:57 Lactic Acid 1.30 mmol/L (0.7-2.0) 01/11/18 23:10 Calcium 8.3 mg/dL (8.4-10.2) L 01/14/18 05:39 Magnesium 2.10 mg/dL (1.7-2.3) 01/14/18 05:39 Total Bilirubin 1.00 mg/dL (0.1-1.2) 01/11/18 19:12 AST 20 units/L (5-40) 01/11/18 19:12 ALT 16 units/L (7-56) 01/11/18 19:12 Alkaline Phosphatase 47 units/L (35-129) 01/11/18 19:12 C-Reactive Protein 17.70 mg/dL (0.00-1.30) H 01/13/18 21:27 Total Protein 7.3 g/dL (6.3-8.2) 01/11/18 19:12 Albumin 3.9 g/dL (3.9-5) 01/11/18 19:12 Albumin/Globulin Ratio 1.1 % 01/11/18 19:12 Urine Color Yellow (Yellow) 01/11/18 22:41 Urine Turbidity Cloudy (Clear) 01/11/18 22:41 Urine pH 7.0 (5.0-7.0) 01/11/18 22:41 Ur Specific [place] 1.017 (1.003-1.030) 09/23/18 22:41 Urine Protein 100 mg/dl mg/dL (Negative) 01/11/18 22:41 Urine Glucose (UA) Neg mg/dL (Negative) 01/11/18 22:41 Urine Ketones Tr mg/dL (Negative) 01/11/18 22:41 Urine Blood Sm (Negative) 01/11/18 22:41 Urine Nitrite Neg (Negative) 01/11/18 22:41 Urine Bilirubin Neg (Negative) 01/11/18 22:41 Urine Urobilinogen 4.0 mg/dL (<2.0) 01/11/18 22:41 Ur Leukocyte Esterase Mod (Negative) 01/11/18 22:41 Urine WBC (Auto) 114.0 /HPF (0.0-6.0) H 01/11/18 22:41 Urine RBC (Auto) 53.0 /HPF (0.0-6.0) 01/11/18 22:41 Urine Bacteria (Auto) 1+ /HPF (Negative) 01/11/18 22:41 Urine Mucus 3+ /HPF 01/11/18 22:41 Urine Yeast (Budding) 3+ /HPF 01/11/18 22:41
[2018-01-15] MEDS: NACL 0.9% 1000 ML 1,000 ML IV SCH ×2 (02:28→18:05)
[2018-01-15] MEDS: DILAUDID IV PRN ×6 (02:28→20:36)
[2018-01-15] MEDS: ZOSYN/NS 4.5GM/100ML 4.5 GM/100 ML VIAL IV SCH ×3 (04:26→21:34)
--- NOTE | 2018-01-15 08:07 | Progress Note ---
<KYLIE ANN - Last Filed: 01/15/18 16:35> Assessment and Plan Assessment: 1) Sepsis: Improved. Etiology most likely pelvic abscess +/- surgical site infection + UTI. -Urine Culture - Ernesto -CRP- 17.7 2) Right large pelvic abscess: from surgical site infection +/- extensive diverticular disease +/- ? fistula -Extensive diverticular disease with history of enterovesical fistula s/p sigmoid resection, colostomy and Hatmann's pouch on 12/18/16 complicated with wound dehiscence s/p wound exploaration on 12/19/16 and cystoscopy with bilateral ureteral stents -S/P 12/30/17 OR ex lap, attempt to close colostomy, closure parastomal hernia, repair rent urinary bladder and ALCIDES -CT 01/11 - Fluid collection with marginal enhancement in the right pelvis concerning for abscess. Variably distended loops of bowel with 2 areas of transition in caliber. Possible areas of partial small bowel obstruction. Colonic diverticula. -s/p CT guided drainage on 01/13 Gram stain + GNR 2 bottles 3) DM 4) COPD 5) History of tobacco abuse Plan: -continue zosyn, D5 -continue fluconazole, d/c after today. -will need zosyn 4.5 g IV q 8h for 3 weeks until 02/04. Consult sent to machine adjuster leader case trim --f/u CT scan in 2 weeks. Kylie Ann NP [facility] M: [phone] O:[phone] Subjective Date of service: 01/15/18 Interval history: Patient laying in bed. at bedside. Patient stated that he was experiencing stomach pain today. Microbiology: Blood cultures: 01/09- ngtd Urine cultures: 01/11- ernesto Surgical Cultrues: 01/13 - GNR Abdomen Current Antimocrobial: Zosyn, D4 Flucanozole, D1 Previous Antimicrobials: Objective - Exam Narrative Exam: Alert in NAD conversant NC AT KARLA OP clear Neck no LNs no JVD Lungs CTA chrystal CV NSR Abd +midline with with sutures inferior portion with erythema, ostomy Ext no edema Neuro alert oriented following commands Skin no rash Line: Right PICC, Right drain - Constitutional Vitals: Vital Signs Temp Pulse Resp BP Pulse Ox 98.2 F 63 18 127/61 97 01/15/18 02:17 01/15/18 02:17 01/15/18 07:16 01/15/18 02:17 01/15/18 02:17 Temperature -Last 24 Hours Temperature 98.2 F Temperature 98.3 F Temperature 100.8 F - Labs CBC & Chem 7: 01/14/18 05:39 01/14/18 05:39 Labs: Abnormal lab results 01/14/18 01/14/18 01/14/18 Range/Units 11:57 16:42 21:36 POC Glucose 161 H 170 H 117 H (70-105) <AWAIS SHANKAR. - Last Filed: 01/15/18 16:44> Assessment and Plan I have personally seen and evaluated this patient on 01/15/2018 with Kylie Ann NP. I have reviewed and confirmed the medical history, physical examination findings, pertinent lab data, microbiologic data & personally reviewed the imaging. We evaluated the risk-benefit, side effect profile of anti -microbials and jointly formulated the above assessment and plan. Awais Shankar MD [facility] C: [phone] O: [phone] Objective - Constitutional Vitals: Vital Signs Temp Pulse Resp BP Pulse Ox 97.3 F L 55 L 18 108/48 93 01/15/18 13:40 01/15/18 13:40 01/15/18 13:55 01/15/18 13:40 01/15/18 13:40 Temperature -Last 24 Hours Temperature 97.3 F Temperature 98.1 F Temperature 98.2 F Temperature 98.3 F - Labs CBC & Chem 7: 01/14/18 05:39 01/14/18 05:39 Labs: Abnormal lab results 01/14/18 01/14/18 01/15/18 Range/Units 16:42 21:36 07:52 POC Glucose 170 H 117 H 111 H (70-105) 01/15/18 01/15/18 Range/Units 11:35 13:15 POC Glucose 140 H 144 H (70-105)
--- NOTE | 2018-01-15 08:21 | Progress Note ---
Assessment and Plan Assessment and plan: --Intra-abdominal /pelvic abscess; CT-guided drainage and placement of a drainage catheter into an infected hematoma in patient's right lower quadrant, on 01/13/18, purulent fluid drainage, --Sepsis secondary to intra-abdominal abscess; still gram-negative cultures Continue Zosyn every 8 hours total 3 weeks, stop date 02/04/2018 recommended by ID PICC line placement today --UTI/funguria; continue Diflucan --Small bowel obstruction; improved Clear liquids advance as tolerated per surgery --Leukocytosis; due to sepsis, trended down to normal range --2 diabetes mellitus; Accu-Chek sliding scale coverage Insulin as needed --DVT prophylaxis; SCDs, no pharmacological anticoagulations as patient is postop risk for bleeding Surgery and ID recommendations noted and appreciated Ambulate as tolerated/physical therapy as needed Plan of care reviewed with the patient and his History Interval history: Patient seen and examined medical records reviewed no new events reported by the nursing Tolerating clear liquids, complaints of some abdominal pain Alert awake, oriented 3 Vital signs noted Hospitalist Physical - Constitutional Vitals: Temp Pulse Resp BP Pulse Ox 98.2 F 63 18 127/61 97 01/15/18 02:17 01/15/18 02:17 01/15/18 07:16 01/15/18 02:17 01/15/18 02:17 General appearance: Present: no acute distress, well-nourished - EENT Eyes: Present: PERRL, EOM intact - Neck Neck: Present: supple, normal ROM - Respiratory Respiratory effort: normal Respiratory: bilateral: diminished, negative: rales, rhonchi, wheezing - Cardiovascular Rhythm: regular Heart Sounds: Present: S1 & S2 - Extremities Extremities: no ischemia, No edema - Abdominal General gastrointestinal: soft, tender (no guarding no rigidity), hypoactive bowel sounds, other (drain in place) - Integumentary Integumentary: Present: clear, warm - Psychiatric Psychiatric: appropriate mood/affect, cooperative - Neurologic Neurologic: moves all extremities Results - Labs CBC & Chem 7: 01/14/18 05:39 01/14/18 05:39 Labs: Laboratory Last Values WBC 8.8 K/mm3 (4.5-11.0) 01/14/18 05:39 RBC 3.52 M/mm3 (3.65-5.03) L 01/14/18 05:39 Hgb 10.9 gm/dl (11.8-15.2) L 01/14/18 05:39 Hct 32.8 % (35.5-45.6) L 01/14/18 05:39 MCV 93 fl (84-94) 01/14/18 05:39 MCH 31 pg (28-32) 01/14/18 05:39 MCHC 33 % (32-34) 01/14/18 05:39 RDW 13.6 % (13.2-15.2) 01/14/18 05:39 Plt Count 245 K/mm3 (140-440) 01/14/18 05:39 Lymph % (Auto) 12.6 % (13.4-35.0) L 01/14/18 05:39 Owen % (Auto) 6.7 % (0.0-7.3) 01/14/18 05:39 Eos % (Auto) 2.2 % (0.0-4.3) 01/14/18 05:39 Baso % (Auto) 0.4 % (0.0-1.8) 01/14/18 05:39 Lymph # 1.1 K/mm3 (1.2-5.4) L 01/14/18 05:39 Owen # 0.6 K/mm3 (0.0-0.8) 01/14/18 05:39 Eos # 0.2 K/mm3 (0.0-0.4) 01/14/18 05:39 Baso # 0.0 K/mm3 (0.0-0.1) 01/14/18 05:39 Seg Neutrophils % 78.1 % (40.0-70.0) H 01/14/18 05:39 Seg Neutrophils # 6.9 K/mm3 (1.8-7.7) 01/14/18 05:39 PT 14.5 Sec. (12.2-14.9) 01/11/18 19:12 INR 1.08 (0.87-1.13) 01/11/18 19:12 VBG pH 7.516 (7.320-7.420) H 01/11/18 19:12 Sodium 141 mmol/L (137-145) D 01/14/18 05:39 Potassium 4.2 mmol/L (3.6-5.0) 01/14/18 05:39 Chloride 103.9 mmol/L (98-107) 01/14/18 05:39 Carbon Dioxide 23 mmol/L (22-30) 01/14/18 05:39 Anion Gap 18 mmol/L 01/14/18 05:39 BUN 15 mg/dL (9-20) 01/14/18 05:39 Creatinine 0.7 mg/dL (0.8-1.5) L 01/14/18 05:39 Estimated GFR > 60 ml/min 01/14/18 05:39 BUN/Creatinine Ratio 21 % 01/14/18 05:39 Glucose 115 mg/dL (75-100) H 01/14/18 05:39 POC Glucose 111 (70-105) H 01/15/18 07:52 Lactic Acid 1.30 mmol/L (0.7-2.0) 01/11/18 23:10 Calcium 8.3 mg/dL (8.4-10.2) L 01/14/18 05:39 Magnesium 2.10 mg/dL (1.7-2.3) 01/14/18 05:39 Total Bilirubin 1.00 mg/dL (0.1-1.2) 01/11/18 19:12 AST 20 units/L (5-40) 01/11/18 19:12 ALT 16 units/L (7-56) 01/11/18 19:12 Alkaline Phosphatase 47 units/L (35-129) 01/11/18 19:12 C-Reactive Protein 17.70 mg/dL (0.00-1.30) H 01/13/18 21:27 Total Protein 7.3 g/dL (6.3-8.2) 01/11/18 19:12 Albumin 3.9 g/dL (3.9-5) 01/11/18 19:12 Albumin/Globulin Ratio 1.1 % 01/11/18 19:12 Urine Color Yellow (Yellow) 01/11/18 22:41 Urine Turbidity Cloudy (Clear) 01/11/18 22:41 Urine pH 7.0 (5.0-7.0) 01/11/18 22:41 Ur Specific [place] 1.017 (1.003-1.030) 01/11/18 22:41 Urine Protein 100 mg/dl mg/dL (Negative) 01/11/18 22:41 Urine Glucose (UA) Neg mg/dL (Negative) 01/11/18 22:41 Urine Ketones Tr mg/dL (Negative) 01/11/18 22:41 Urine Blood Sm (Negative) 01/11/18 22:41 Urine Nitrite Neg (Negative) 01/11/18 22:41 Urine Bilirubin Neg (Negative) 01/11/18 22:41 Urine Urobilinogen 4.0 mg/dL (<2.0) 01/11/18 22:41 Ur Leukocyte Esterase Mod (Negative) 01/11/18 22:41 Urine WBC (Auto) 114.0 /HPF (0.0-6.0) H 01/11/18 22:41 Urine RBC (Auto) 53.0 /HPF (0.0-6.0) 01/11/18 22:41 Urine Bacteria (Auto) 1+ /HPF (Negative) 01/11/18 22:41 Urine Mucus 3+ /HPF 01/11/18 22:41 Urine Yeast (Budding) 3+ /HPF 01/11/18 22:41
[2018-01-15] MEDS: HumaLOG SUB-Q SCH ×4 (09:01→22:00)
[2018-01-15] MEDS: ZANAFLEX PO SCH (09:20)
[2018-01-15] MEDS ORDERED: DIFLUCAN PO SCH (10:00)
[2018-01-15] MEDS: FLOMAX PO SCH (10:08)
[2018-01-15] MEDS: PROTONIX PO SCH (10:08)
[2018-01-15] MEDS: HCTZ PO SCH (10:09)
[2018-01-15] MEDS: LYRICA PO SCH (10:09)
[2018-01-15] MEDS: ZESTRIL PO SCH (10:10)
[2018-01-15] MEDS: DIFLUCAN 200 MG/100 ML BAG IV SCH (10:35)
--- NOTE | 2018-01-15 10:43 | XRay Report ---
AP CHEST: HISTORY: Right upper arm PICC placement The right arm PICC terminates at the cavoatrial junction. AP view of the chest demonstrates a normal mediastinal and cardiac contour with clear lungs and normal bony and soft tissue structures. IMPRESSION: Unremarkable AP chest.
[2018-01-15] MEDS ORDERED: MILK OF MAGNESIA PO ONE (11:39)
--- NOTE | 2018-01-15 15:01 | Progress Note ---
Subjective Patient Reports: Positive: feels better, still having pain, pain is less, tolerating liquids well Narrative: doing excellent abd soft , tohave MOM , cbc OK Objective Vital Signs - 12hr 01/15/18 01/15/18 01/15/18 06:46 07:16 07:53 Temperature 98.1 F Pulse Rate 74 Respiratory 20 18 20 Rate Blood Pressure 148/69 O2 Sat by Pulse 95 Oximetry 01/15/18 01/15/18 01/15/18 10:10 13:40 13:55 Temperature 97.3 F L Pulse Rate 74 55 L Respiratory 20 18 18 Rate Blood Pressure 148/69 108/48 O2 Sat by Pulse 93 Oximetry - Labs 01/14/18 05:39 01/14/18 05:39
[2018-01-15] MEDS ORDERED: AMBIEN PO SCH (22:00)
[2018-01-16] MEDS: DILAUDID IV PRN ×5 (00:04→12:20)
[2018-01-16] MEDS: NACL 0.9% 1000 ML 1,000 ML IV SCH (02:52)
[2018-01-16] MEDS: ZOSYN/NS 4.5GM/100ML 4.5 GM/100 ML VIAL IV SCH ×2 (03:03→12:19)
[2018-01-16 06:57] LABS: Basophils # (Auto) 0.1 K/mm3 (0.0-0.1); Eosinophils # (Auto) 0.2 K/mm3 (0.0-0.4); Eosinophils % (Auto) 2.2 % (0.0-4.3); Hematocrit 28.9 % (35.5-45.6); Hemoglobin 9.8 gm/dl (11.8-15.2); Lymphocytes # (Auto) 0.8 K/mm3 (1.2-5.4); Lymphocytes % (Auto) 11.9 % (13.4-35.0); Mean Corpuscular HGB Conc 34 % (32-34); Mean Corpuscular Hemoglobin 31 pg (28-32); Mean Corpuscular Volume 91 fl (84-94); Monocytes # (Auto) 0.3 K/mm3 (0.0-0.8); Monocytes % (Auto) 4.9 % (0.0-7.3); Platelet Count 283 K/mm3 (140-440); Red Cell Distribution Width 13.5 % (13.2-15.2)
[2018-01-16 07:23] LABS: Alanine Aminotransferase 19 units/L (7-56); BUN/Creatinine Ratio 17; Blood Urea Nitrogen 10 mg/dL (9-20); Calcium 8.3 mg/dL (8.4-10.2); Hemolysis Index 3
--- NOTE | 2018-01-16 08:09 | Progress Note ---
Assessment and Plan Assessment: 1) Sepsis: Resolved Etiology most likely pelvic abscess +/- surgical site infection + UTI. -Urine Culture - Ernesto -CRP- 17.7 2) Right large pelvic abscess: from surgical site infection +/- extensive diverticular disease +/- ? fistula -Extensive diverticular disease with history of enterovesical fistula s/p sigmoid resection, colostomy and Hatmann's pouch on 12/18/16 complicated with wound dehiscence s/p wound exploaration on 12/19/16 and cystoscopy with bilateral ureteral stents -S/P 12/30/17 OR ex lap, attempt to close colostomy, closure parastomal hernia, repair rent urinary bladder and ALCIDES -CT 01/11 - Fluid collection with marginal enhancement in the right pelvis concerning for abscess. Variably distended loops of bowel with 2 areas of transition in caliber. Possible areas of partial small bowel obstruction. Colonic diverticula. -s/p CT guided drainage on 01/13 Gram stain + GNR 3) DM 4) COPD 5) History of tobacco abuse Plan: -continue zosyn, D5 -will need zosyn 4.5 g IV q 8h for 3 weeks until 02/04. Consult sent to child welfare caseworker --CT scan scheduled for 2 weeks- 01-30-18 f/u in the office with Dr. Shankar on 02-03-18 ID will sign off [facility] M: [phone] O:[phone] Subjective Interval history: Patient laying in bed. at bedside. Patient stated that he was ready to go home. Patient agree with plan on follow-up CT scan and follow-up office visit. Microbiology: Blood cultures: 01/09- ngtd Urine cultures: 01/11- ernesto Surgical Cultrues: 01/13 - GNR Abdomen Current Antimocrobial: Zosyn, D5 Previous Antimicrobials: Flucanozole, D1 Objective - Exam Narrative Exam: Alert in NAD conversant NC AT KARLA OP clear Neck no LNs no JVD Lungs CTA chrystal CV NSR Abd +midline with with sutures inferior portion with erythema, ostomy Ext no edema Neuro alert oriented following commands Skin no rash Line: Right PICC, Right drain - Constitutional Vitals: Vital Signs Temp Pulse Resp BP Pulse Ox 98.9 F 82 20 147/82 95 01/16/18 07:53 01/16/18 07:53 01/16/18 07:53 01/16/18 07:53 01/16/18 07:53 Temperature -Last 24 Hours Temperature 98.9 F Temperature 98.2 F Temperature 98.4 F Temperature 97.3 F - Labs CBC & Chem 7: 01/16/18 06:40 01/16/18 06:40 Labs: Abnormal lab results 01/15/18 01/15/18 01/15/18 Range/Units 07:52 11:35 13:15 RBC (3.65-5.03) M/mm3 Hgb (11.8-15.2) gm/dl Hct (35.5-45.6) % Lymph % (Auto) (13.4-35.0) % Lymph # (1.2-5.4) K/mm3 Seg Neutrophils % (40.0-70.0) % Potassium (3.6-5.0) mmol/L Creatinine (0.8-1.5) mg/dL Glucose (75-100) mg/dL POC Glucose 111 H 140 H 144 H (70-105) Calcium (8.4-10.2) mg/dL Phosphorus (2.5-4.5) mg/dL Alkaline Phosphatase (35-129) units/L Albumin (3.9-5) g/dL 01/15/18 01/16/18 01/16/18 Range/Units 16:46 06:40 06:40 RBC 3.20 L (3.65-5.03) M/mm3 Hgb 9.8 L (11.8-15.2) gm/dl Hct 28.9 L (35.5-45.6) % Lymph % (Auto) 11.9 L (13.4-35.0) % Lymph # 0.8 L (1.2-5.4) K/mm3 Seg Neutrophils % 80.0 H (40.0-70.0) % Potassium 3.1 L D (3.6-5.0) mmol/L Creatinine 0.6 L (0.8-1.5) mg/dL Glucose 110 H (75-100) mg/dL POC Glucose 140 H (70-105) Calcium 8.3 L (8.4-10.2) mg/dL Phosphorus 2.20 L (2.5-4.5) mg/dL Alkaline Phosphatase 34 L (35-129) units/L Albumin 3.0 L (3.9-5) g/dL 01/16/18 Range/Units 07:44 RBC (3.65-5.03) M/mm3 Hgb (11.8-15.2) gm/dl Hct (35.5-45.6) % Lymph % (Auto) (13.4-35.0) % Lymph # (1.2-5.4) K/mm3 Seg Neutrophils % (40.0-70.0) % Potassium (3.6-5.0) mmol/L Creatinine (0.8-1.5) mg/dL Glucose (75-100) mg/dL POC Glucose 112 H (70-105) Calcium (8.4-10.2) mg/dL Phosphorus (2.5-4.5) mg/dL Alkaline Phosphatase (35-129) units/L Albumin (3.9-5) g/dL
[2018-01-16] MEDS: HumaLOG SUB-Q SCH ×3 (08:18→16:56)
[2018-01-16] MEDS: PROTONIX PO SCH (09:18)
[2018-01-16] MEDS: LYRICA PO SCH (09:18)
[2018-01-16] MEDS: HCTZ PO SCH (09:18)
[2018-01-16] MEDS: ZESTRIL PO SCH (09:18)
[2018-01-16] MEDS: FLOMAX PO SCH (09:18)
--- NOTE | 2018-01-16 13:26 | Progress Note ---
Subjective Patient Reports: Positive: feels better, flatus, bowel movement Narrative: doing fine drainage nil , abd soft , home today to see Dr Epstein in 3 days , rinku lisa in 2 weeks , Objective Vital Signs - 12hr 01/16/18 01/16/18 01/16/18 02:32 02:53 03:23 Temperature 98.2 F Pulse Rate 94 H Respiratory 20 20 20 Rate Blood Pressure 157/73 O2 Sat by Pulse 93 Oximetry 01/16/18 01/16/18 01/16/18 06:11 06:41 07:53 Temperature 98.9 F Pulse Rate 82 Respiratory 20 20 20 Rate Blood Pressure 147/82 O2 Sat by Pulse 95 Oximetry 01/16/18 01/16/18 01/16/18 09:15 09:18 10:00 Temperature Pulse Rate 82 Respiratory 20 Rate Blood Pressure 147/82 O2 Sat by Pulse 95 Oximetry 01/16/18 12:20 Temperature Pulse Rate Respiratory 20 Rate Blood Pressure O2 Sat by Pulse Oximetry - Labs 01/16/18 06:40 01/16/18 06:40 Diabetes panel 01/16/18 Range/Units 06:40 Sodium 140 (137-145) mmol/L Potassium 3.1 L D (3.6-5.0) mmol/L Chloride 101.9 (98-107) mmol/L Carbon Dioxide 23 (22-30) mmol/L BUN 10 (9-20) mg/dL Creatinine 0.6 L (0.8-1.5) mg/dL Glucose 110 H (75-100) mg/dL Calcium 8.3 L (8.4-10.2) mg/dL AST 36 (5-40) units/L ALT 19 (7-56) units/L Alkaline Phosphatase 34 L (35-129) units/L Total Protein 6.7 (6.3-8.2) g/dL Albumin 3.0 L (3.9-5) g/dL Calcium panel 01/16/18 Range/Units 06:40 Calcium 8.3 L (8.4-10.2) mg/dL Phosphorus 2.20 L (2.5-4.5) mg/dL Albumin 3.0 L (3.9-5) g/dL Pituitary panel 01/16/18 Range/Units 06:40 Sodium 140 (137-145) mmol/L Potassium 3.1 L D (3.6-5.0) mmol/L Chloride 101.9 (98-107) mmol/L Carbon Dioxide 23 (22-30) mmol/L BUN 10 (9-20) mg/dL Creatinine 0.6 L (0.8-1.5) mg/dL Glucose 110 H (75-100) mg/dL Calcium 8.3 L (8.4-10.2) mg/dL Adrenal panel 01/16/18 Range/Units 06:40 Sodium 140 (137-145) mmol/L Potassium 3.1 L D (3.6-5.0) mmol/L Chloride 101.9 (98-107) mmol/L Carbon Dioxide 23 (22-30) mmol/L BUN 10 (9-20) mg/dL Creatinine 0.6 L (0.8-1.5) mg/dL Glucose 110 H (75-100) mg/dL Calcium 8.3 L (8.4-10.2) mg/dL Total Bilirubin 0.50 (0.1-1.2) mg/dL AST 36 (5-40) units/L ALT 19 (7-56) units/L Alkaline Phosphatase 34 L (35-129) units/L Total Protein 6.7 (6.3-8.2) g/dL Albumin 3.0 L (3.9-5) g/dL
[2018-01-16 13:55] VITALS: BP 154/81
--- NOTE | 2018-01-16 15:42 | Discharge Summary ---
Providers - Providers Date of Admission: 01/12/18 02:09 Date of discharge: 01/16/18 Attending physician: EDINSON SUAZO 01/12/18 06:13 Consult to Physician [CONS] Routine Comment: spoke to dr. becerra/mario Consulting Provider: CLARISSA BECERRA Physician Instructions: Reason For Exam: SURGICAL WOUND INFECTION AND BREAKDOWN 01/13/18 09:35 Consult to Physician [CONS] Routine Comment: called dr. shreya platt mess./mario Consulting Provider: ANNEL NEVAREZ Physician Instructions: Reason For Exam: Pelvc/intra abd abscess/yeast urine 01/14/18 13:24 Consult to Case Management [CONS] Stat Services Needed at Discharge: Other Notified:: instructional technology coach case management social worker Additional Physician Instructions: [facility] M [phone] O [phone] F [phone] OUTPATIENT PARENTERAL ANTIBIOTIC THERAPY ORDERS Diagnoses: intraabdominal abscess Antimicrobial administration: zosyn 4.5 g IV q 8h for 3 weeks until 02/04. Remove PICC line after last dose unless otherwise instructed. Lines: PICC Lab monitoring: CBC, BUN, Creatinine, ALT, AST once a week preferly on Friday morning. Please fax results to [phone] and call [phone] for critical lab results. Cadence Ro NP/Annel Puri MD Date: 01/14/18 Primary care physician: RECORDS SUPERVISOR Hospitalization Condition: Fair Disposition: DC/[place]-06 HOME UNDER [facility] Core Measure Documentation - Palliative Care Palliative Care/ Comfort Measures: Not Applicable - Core Measures Any of the following diagnoses?: none Exam - Constitutional Vitals: Temp Pulse Resp BP Pulse Ox 98.2 F 75 20 154/81 95 01/16/18 13:52 01/16/18 13:52 01/16/18 13:52 01/16/18 13:52 01/16/18 13:52 General appearance: Present: no acute distress, well-nourished - EENT Eyes: Present: PERRL, EOM intact - Neck Neck: Present: supple, normal ROM - Respiratory Respiratory effort: normal Respiratory: bilateral: diminished, negative: rales, rhonchi, wheezing - Cardiovascular Rhythm: regular Heart Sounds: Present: S1 & S2 - Extremities Extremities: no ischemia, No edema - Abdominal General gastrointestinal: Present: soft, non-tender, non-distended, normal bowel sounds - Integumentary Integumentary: Present: clear, warm - Musculoskeletal Musculoskeletal: strength equal bilaterally - Psychiatric Psychiatric: appropriate mood/affect - Neurologic Neurologic: moves all extremities Plan Diet: other (full liquids, advance as tolerated.) Wound: per wound nurse instructions Special Instructions: physical therapy Additional Instructions: Zosyn 4.5 gm every 8 hours total 3 weeks, stop date recommended by ID. Hold insulin, as your sugars are in the lower range. Once you advance diet and blood sugars increase, check with PMD and resume insulin as needed Follow up with: PRIMARY CARE, [Primary Care Provider] - 3-5 Days LYRIC SUNSHINE MD [Staff Physician] - 02/03/18 VALDO LOPEZ MD [Staff Physician] - 3 Days CLARISSA BECERRA MD [Staff Physician] - 14 Days Prescriptions: Zolpidem [Ambien] 10 mg PO QHS #5 tablet Other Discharge Orders: CT abdomen pelvis w con Time Frame: 2 Weeks, Location: None Selected
[2018-01-16] MEDS ORDERED: K-DUR PO ONE (17:10)
== END 2018-01-16 17:52 | disposition home health service (06) | DRG 862 ==
LOC: ED 18:49 → 3A 01-12 02:09 → 2B-ACE 01-12 06:41
PROVIDERS: ADMIT Internal Medicine; ATTEND Internal Medicine
PROC: 02HV33Z Insertion of Infusion Device into Superior Vena Cava, Percutaneous Approach (ICD-10-PCS; principal; 2018-01-15)
PROC: 0W9G30Z Drainage of Peritoneal Cavity with Drainage Device, Percutaneous Approach (ICD-10-PCS; principal; 2018-01-15)
DX: T81.4XXA Infection following a procedure, initial encounter (principal); A41.9 Sepsis, unspecified organism; K65.1 Peritoneal abscess; K56.609 Unspecified intestinal obstruction, unspecified as to partial versus complete obstruction; L02.211 Cutaneous abscess of abdominal wall; N39.0 Urinary tract infection, site not specified; K57.90 Diverticulosis of intestine, part unspecified, without perforation or abscess without bleeding; Y83.8 Other surgical procedures as the cause of abnormal reaction of the patient, or of later complication, without mention of misadventure at the time of the procedure; E11.9 Type 2 diabetes mellitus without complications; J44.9 Chronic obstructive pulmonary disease, unspecified; Z93.3 Colostomy status; Z79.899 Other long term (current) drug therapy; Z79.4 Long term (current) use of insulin; Z79.2 Long term (current) use of antibiotics; Y92.89 Other specified places as the place of occurrence of the external cause; Z88.8 Allergy status to other drugs, medicaments and biological substances
CPT/HCPCS: 10160; 36415; 71045; 74177; 77012; 80048; 80053; 81001; 82140; 82805; 82962; 83735; 84100; 85025; 85610; 86140; 87040; 87076; 87086; 87116; 87186; 93005; 93010; 94760; 96374; 96375; 99285; C1769; J1170; J1450; J1815; J2250; J2405; J2543; J3010; J7030; Q9967

== ENCOUNTER 2018-01-21 13:12 | Outpatient (CLI) | payer MEDICARE ==
--- NOTE | 2018-01-22 08:02 | Fluoroscopy Report ---
FLUOROSCOPY CYSTOGRAM STATIC History: Laceration of bladder. Findings: Jewelry Racker film of the abdomen demonstrates a surgical drain in the right side of the pelvis. 7 fluoroscopic images were captured during infusion of 250 cc of contrast into the bladder. The bladder is normal size and contour. There is no evidence for extravasation or filling defect. The postvoid film demonstrates complete emptying of the bladder. Impression: Normal bladder. No laceration is identified.
== END 2018-01-21 13:13 | disposition home or self-care (01) ==
LOC: FLUORO 13:12
PROVIDERS: ATTEND Urology
DX: S37.23XA Laceration of bladder, initial encounter (principal); E78.00 Pure hypercholesterolemia, unspecified; I11.0 Hypertensive heart disease with heart failure; I50.9 Heart failure, unspecified; I25.10 Atherosclerotic heart disease of native coronary artery without angina pectoris; J44.9 Chronic obstructive pulmonary disease, unspecified; K21.9 Gastro-esophageal reflux disease without esophagitis; M19.90 Unspecified osteoarthritis, unspecified site; E11.9 Type 2 diabetes mellitus without complications; Z87.891 Personal history of nicotine dependence; X58.XXXA Exposure to other specified factors, initial encounter; Y93.89 Activity, other specified; Y92.89 Other specified places as the place of occurrence of the external cause; Y99.8 Other external cause status
CPT/HCPCS: 74430; Q9958

== ENCOUNTER 2018-01-26 13:01 | Outpatient (CLI) | payer MEDICARE ==
[2018-01-26] MEDS ORDERED: XYLOCAINE TOPICAL 4% TP ONE ×2 (13:41→15:32)
== END 2018-01-26 13:02 | disposition home or self-care (01) ==
LOC: WOUND 13:01
PROVIDERS: ATTEND Surgery
DX: T81.31XA Disruption of external operation (surgical) wound, not elsewhere classified, initial encounter (principal); E11.40 Type 2 diabetes mellitus with diabetic neuropathy, unspecified; I10 Essential (primary) hypertension; J44.9 Chronic obstructive pulmonary disease, unspecified; Z87.891 Personal history of nicotine dependence; Y83.8 Other surgical procedures as the cause of abnormal reaction of the patient, or of later complication, without mention of misadventure at the time of the procedure; Y92.89 Other specified places as the place of occurrence of the external cause
CPT/HCPCS: 11042; 11045; G0463; 99214

== ENCOUNTER 2018-02-11 09:18 | Outpatient (CLI) | payer MEDICARE ==
[2018-02-11 10:20] LABS: Blood Urea Nitrogen 11 mg/dL (9-20)
--- NOTE | 2018-02-11 14:53 | Cat Scan Report ---
CT ABDOMEN PELVIS WITH CONTRAST: HISTORY: Pelvic abscess in male. COMPARISON: 01/13/18. TECHNIQUE: Helical CT in 1.25mm intervals following IV contrast. Sagittal and coronal reconstructions. FINDINGS: The right lower quadrant fluid collection has resolved since 01/13/18 CT drainage. No new pelvic abscess is demonstrated. Heart size is normal. The visualized lung bases are clear. Normal liver, biliary system, pancreas, spleen and adrenal glands. A 2.3 cm cyst is noted in the mid right kidney. No evidence for renal mass, large calculus or hydronephrosis. The ureters and bladder are unremarkable. Left lower quadrant colostomy is intact. There are scattered diverticula throughout the colon and mild fecal retention. No inflammatory changes or bowel obstruction. Normal appendix. The [place]'s pouch is intact. Moderate to severe atherosclerotic disease is present throughout the abdominal aorta. No aneurysm or high-grade stenosis. The bony structures are intact. Moderate lumbar spondylosis is noted. IMPRESSION: The pelvic abscess has resolved as described above. No new acute process. Chronic findings as described above.
== END 2018-02-11 09:19 | disposition home or self-care (01) ==
LOC: CT 09:18
PROVIDERS: ATTEND Internal Medicine Infectious Disease
DX: K65.1 Peritoneal abscess (principal); K57.90 Diverticulosis of intestine, part unspecified, without perforation or abscess without bleeding; I10 Essential (primary) hypertension; E78.00 Pure hypercholesterolemia, unspecified; K21.9 Gastro-esophageal reflux disease without esophagitis; E11.9 Type 2 diabetes mellitus without complications; I25.10 Atherosclerotic heart disease of native coronary artery without angina pectoris; M19.90 Unspecified osteoarthritis, unspecified site
CPT/HCPCS: 36415; 74177; 82565; 84520; Q9967